=== PATIENT | male | born 1975 | race African-American/Black ===

== ENCOUNTER 2023-09-28 16:37 | Observation (INO) ==
--- NOTE | 2023-09-28 17:02 | DR.GENAD ---
HPI Time Seen Time Seen by Provider: 09/28/23 17:02 PCP Primary Care Physician: [email or web address] Complaint/Symptoms Chief Complaint Doctors Comments: 48 y/o male presents for evaluation. Patient having swelling of his legs, coughing and shortness of breath. Patient was diagnosed earlier this week with congestive heart failure, first time he had the diagnosis. Patient also told he had a touch of pneumonia. Has been taking Lasix, 40 mg, twice daily, was increased to 80 mg twice daily. Patient still having swelling of his ankles and legs. He is short of breath even at rest. He is worse with laying down. Patient sleeps on a couple of pillows. Denies any fever, chest pain, bowel or bladder issues. Gets an occasional twinge of epigastric discomfort with eating. Has had a productive cough, productive of white-yellow sputum. Chief Complaint:: patient c/o of increased sob since 5am this morning along with o2 sat dropping from 99-70's during triage patient o2 sat was 99 and slowly dropped down into the low 70's and slowly came back up to 99. states this has been going on since this am with o2 sat dropping.nando feet swelling. patient denies pain. COVID-19 Coronavirus risk:travel/contact w/high risk person: No Has patient experienced Coronavirus symptoms: No Nurses notes reviewed Nurses Notes Review: Yes Source History Provided: Patient Mode of Arrival Mode of Arrival: Ambulatory Timing Onset of Chief Complaint: 09/28/23 PMH PMH Past Medical History: Yes Past Medical History: CHF and Hypertension Past Surgical History: No Family History History of Family Medical Conditions: Yes Family Medical History: Diabetes Mellitus and Hypertension Social History Does patient currently use any type of tobacco product: No Have you used tobacco products in the last 12 months: No Type of Tobacco Use: None Does any household member use tobacco: No Alcohol Use: None Do you use any recreational Drugs:: No Lives With: Family Lives Where: Home Travel Risk Coronavirus risk:travel/contact w/high risk person: No Has patient experienced Coronavirus symptoms: No Infectious screening In the last 2 months have you had wt loss of >10#?: NO Have you had fever, night sweats or hemotysis?: No Have you traveled outside the country in the last 6 months?: No Isolation: Standard ROS Review of Systems Constitutional: No Symptoms Reported Eyes: No Symptoms Reported ENTM: No Symptoms Reported Respiratoy: Moist Cough and Short of Breath Cardiovascular: Edema Gastrointestinal/Abdominal: No Symptoms Reported Genitourinary: No Symptoms Reported Neurological: No Symptoms Reported Musculoskeletal: No Symptoms Reported Integumentary: No Symptoms Reported Hematologic/Lymphatic: No Symptoms Reported All Other Systems: Reviewed and Negative PE Vital Signs Vitals: Vital Signs Temperature 98.2 F Pulse Rate 77 Pulse Rate 86 Pulse Rate 76 Pulse Rate 81 Pulse Rate 82 Pulse Rate 76 Pulse Rate 78 Pulse Rate 76 Pulse Rate 82 Pulse Rate 80 Pulse Rate 83 Pulse Rate 87 Respiratory Rate 22 Blood Pressure 117/58 Blood Pressure 117/73 Blood Pressure 115/73 Blood Pressure 122/70 Blood Pressure 129/82 O2 Sat by Pulse Oximetry 100 O2 Sat by Pulse Oximetry 100 O2 Sat by Pulse Oximetry 100 O2 Sat by Pulse Oximetry 100 O2 Sat by Pulse Oximetry 99 O2 Sat by Pulse Oximetry 100 O2 Sat by Pulse Oximetry 100 O2 Sat by Pulse Oximetry 98 O2 Sat by Pulse Oximetry 100 O2 Sat by Pulse Oximetry 100 O2 Sat by Pulse Oximetry 100 O2 Sat by Pulse Oximetry 99 General General Appearance: Alert and In No Apparent Distress Eyes Eye exam: PERRL and EOMI ENT ENT Exam: Normal Exam and Mucous Membranes Moist Neck Neck Exam: Normal Inspection Respiratory Respiratory Exam: Other (Rales at the right base, decreased breath sounds at the base) Cardiovascular Cardiovascular Exam: Regular Rate, Normal Rhythm and Normal Heart Sounds Abdominal Exam Abdominal Exam: Normal Bowel Sounds and Soft; negative Tenderness Extremities Extremities Exam: Edema (3+, bilateral lower exts.) Neurologic Neurological Exam: Alert, Oriented X3 and CN II-XII Intact; negative Motor Sensory Deficit Skin Skin Exam: Warm and Dry COURSE Treatment Treatment: 48-year-old male presents with lower extremity edema, shortness of b reath. Diagnosed this week with CHF. Symptoms unrelieved with high dose of Lasix, 80 mgs BID. W/u initiated. Given IV lasix, 40 mgs. 1933 -patient was put out 1800 mL urine after the Lasix. Remained stable at rest, on O2. Chest x-ray shows cardiomegaly with CHF changes present. Troponin was normal at 21, lactic acid normal at 0.9. CBC and CMP overall unremarkable. Discussed with loyda HICKS, Dr Cotto, will admit for further IV diuresis. ROR Labs Reviewed Laboratory Results Reviewed?: Yes 09/28/23 17:05 09/28/23 17:05 Laboratory: WBC 5.8 X10^3/uL (3.6-10.0) 09/28/23 17:05 RBC 5.47 X10^6/uL (4.7-6.0) 09/28/23 17:05 Hgb 12.8 g/dL (13.5-18.0) L 09/28/23 17:05 Hct 40.7 % (42.0-54.0) L 09/28/23 17:05 MCV 74.5 fL (80.0-100.0) L 09/28/23 17:05 MCH 23.4 pg (27.0-34.0) L 09/28/23 17:05 MCHC 31.5 g/dL (33.0-35.0) L 09/28/23 17:05 RDW 18.3 % (11.6-16.5) H 09/28/23 17:05 Plt Count 175 X10^3/uL (150.0-450.0) 09/28/23 17:05 Plt Count Comment Adequate (ADEQUATE) 09/28/23 17:05 MPV 10.1 fL (7.4-11.0) 09/28/23 17:05 Neut % (Auto) 52.4 % (42.0-75.0) 09/28/23 17:05 Lymph % (Auto) 33.5 % (21.0-51.0) 09/28/23 17:05 [place] % (Auto) 11.1 % (0.0-13.0) 09/28/23 17:05 Eos % (Auto) 1.9 % (0.9-2.9) 09/28/23 17:05 Baso % (Auto) 1.1 % (0.2-1.0) H 09/28/23 17:05 Neut # (Auto) 3.0 x10^3/uL (2.2-4.8) 09/28/23 17:05 Lymph # (Auto) 1.9 X10^3/uL (1.3-2.9) 09/28/23 17:05 [place] # (Auto) 0.6 x10^3/uL (0.3-0.8) 09/28/23 17:05 Eos # (Auto) 0.1 x10^3/uL (0.0-0.2) 09/28/23 17:05 Baso # (Auto) 0.1 X10^3/uL (0.0-0.1) 09/28/23 17:05 Absolute Nucleated RBC 0.1 /100WBC 09/28/23 17:05 Plt Morphology Comment Normal (NORMAL) 09/28/23 17:05 RBC Morphology Abnormal (NORMAL) 09/28/23 17:05 Hypochromasia 1+ A 09/28/23 17:05 Anisocytosis Slight A 09/28/23 17:05 Microcytosis Slight A 09/28/23 17:05 Target Cells Present 09/28/23 17:05 Sodium 137 mmol/L (136-145) 09/28/23 17:05 Corrected Sodium 138 mmol/L (136-145) 09/28/23 17:05 Potassium 3.6 mmol/L (3.5-5.1) 09/28/23 17:05 Chloride 103 mmol/L (98-107) 09/28/23 17:05 Carbon Dioxide 30.2 mmol/L (21-32) 09/28/23 17:05 BUN 12 mg/dL (7-18) 09/28/23 17:05 Creatinine 1.47 mg/dL (0.70-1.30) H 09/28/23 17:05 Est GFR (MDRD) Af Amer > 60 (>60) 09/28/23 17:05 Est GFR (MDRD) Non-Af 54 (>60) L 09/28/23 17:05 Glucose 126 mg/dL (65-99) H 09/28/23 17:05 Lactic Acid 0.9 mmol/L (0.4-2.0) 09/28/23 17:29 Calcium 8.5 mg/dL (8.5-10.1) 09/28/23 17:05 Corrected Calcium 9.2 mg/dL (8.5-10.1) 09/28/23 17:05 Total Bilirubin 1.40 mg/dL (0.2-1.0) H 09/28/23 17:05 AST 16 Units/L (15-37) 09/28/23 17:05 ALT 40 Units/L (12-78) 09/28/23 17:05 Alkaline Phosphatase 47 Units/L (46-116) 09/28/23 17:05 Troponin I High Sens 21.0 ng/L (4.0-60.0) 09/28/23 17:05 B-Natriuretic Peptide 508 pg/mL (0-79) H 09/28/23 17:05 Total Protein 6.1 g/dL (6.4-8.2) L 09/28/23 17:05 Albumin 3.1 g/dL (3.4-5.0) L 09/28/23 17:05 Globulin 3.0 g/dL (2.5-4.5) 09/28/23 17:05 Albumin/Globulin Ratio 1.0 Ratio (1.1-2.1) L 09/28/23 17:05 Lipase 50 Units/L (16-77) 09/28/23 17:05 XRAY XRAY Interpreted by: Both X-ray Results: EXAM: PORTABLE CHEST X-RAY HISTORY: Dyspnea. TECHNIQUE: AP CXR dated September 28, 2023 at 6:01 PM. COMPARISON: CXR dated September 22, 2023. FINDINGS: There is evidence for cardiomegaly. The pulmonary vascularity and interstitial markings are diffusely prominent, consistent with CHF or volume overload in the appropriate clinical setting. There is no gross focal lung consolidation, pleural effusion, or pneumothorax seen. The visualized bony structures are within normal limits. IMPRESSION: 1. Findings consistent with CHF or volume overload in the appropriate clinical setting (significantly improved appearance of infiltrates). Clinical correlation is advised. THIS IS AN ELECTRONICALLY VERIFIED FINAL REPORT 09/28/2023 6:35 PM - Electronically signed by Bonnie Willson EKG Rate: 77 [place]: Normal Rhythm: NSR Hypertrophy: LAE ST: Normal Opioid Opioid Risk Tool Age (Anton box if 16-45): No History of Preadolescent Sexual Abuse: No Total: 0 Total Score Risk Category: Low Risk Copyright: Tor JACKSON predicting aberrant behaviors Discharge Plan Diagnosis Discharge Problem: CHF (congestive heart failure) Discharge Plan Patient Disposition: 09 ADMITTED INPATIENT Condition: Stable Prescriptions: No Action potassium chloride 10 mEq capsule, extended release 10 meq PO BID Qty: 60 2RF carvedilol 6.25 mg tablet 6.25 mg PO Q12H Qty: 60 3RF Rx Instructions: must administer with a meal/food cefdinir 300 mg capsule 300 mg PO BID Qty: 20 0RF benzonatate 100 mg capsule 100 mg PO BID PRNQty: 14 0RF furosemide 40 mg tablet 80 mg PO BID Health Concerns: Post Hospitalization: new medications and changes needed to prevent readmission or further decline. Pt educated and given instructions on all concerns. Plan of Treatment: Continue with present treatment and follow up plan. Pt is to keep follow up appointment as instructed and take medications as ordered. Orders to Discharge Patient Discharge Orders: Transfer (Routine); Ordered 09/28/23 Ordered By: Camilo June Follow ups/Referrals Follow ups/Referrals: Johnnie Cotto [Primary Care Provider] - 3 days
[2023-09-28] MEDS ORDERED: LASIX IVP ONE ×2 (17:15→17:20)
--- NOTE | 2023-09-28 17:15 | EKG ---
Test Reason : dyspnea Blood Pressure : */* mmHG Vent. Rate : 77 BPM Atrial Rate : 77 BPM P-R Int : 146 ms QRS Dur : 88 ms QT Int : 412 ms P-R-T Axes : 64 23 22 degrees QTc Int : 466 ms Normal sinus rhythm Possible Left atrial enlargement Nonspecific T wave abnormality Prolonged QT Abnormal ECG When compared with ECG of 22-SEP-2023 10:39, Borderline criteria for Inferior infarct are no longer present Confirmed by Lion Mcdermott MD ([id number]) on 09/29/2023 7:44:17 AM Referred By: Confirmed By: Lion Mcdermott MD
[2023-09-28 17:18] LABS: BASOPHILS # (AUTO) 0.1 X10^3/uL (0.0-0.1); BASOPHILS % (AUTO) 1.1 % (0.2-1.0); EOSINOPHILS # (AUTO) 0.1 x10^3/uL (0.0-0.2); EOSINOPHILS % (AUTO) 1.9 % (0.9-2.9); HEMATOCRIT 40.7 % (42.0-54.0); HEMOGLOBIN 12.8 g/dL (13.5-18.0); LYMPHOCYTES # (AUTO) 1.9 X10^3/uL (1.3-2.9); LYMPHOCYTES % (AUTO) 33.5 % (21.0-51.0); MEAN CORPUSCULAR HEMOGLOBIN 23.4 pg (27.0-34.0); MEAN CORPUSCULAR HGB CONC 31.5 g/dL (33.0-35.0); MEAN CORPUSCULAR VOLUME 74.5 fL (80.0-100.0); MEAN PLATELET VOLUME 10.1 fL (7.4-11.0); MONOCYTES # (AUTO) 0.6 x10^3/uL (0.3-0.8); MONOCYTES % (AUTO) 11.1 % (0.0-13.0); NEUTROPHILS % (AUTO) 52.4 % (42.0-75.0); PLATELET COUNT 175 X10^3/uL (150.0-450.0); RED BLOOD COUNT 5.47 X10^6/uL (4.7-6.0); RED CELL DISTRIBUTION WIDTH 18.3 % (11.6-16.5); WHITE BLOOD COUNT 5.8 X10^3/uL (3.6-10.0)
[2023-09-28 17:35] LABS: ALANINE AMINOTRANSFERASE 40 Units/L (12-78); ALBUMIN 3.1 g/dL (3.4-5.0); ALKALINE PHOSPHATASE 47 Units/L (46-116); ASPARTATE AMINO TRANSFERASE 16 Units/L (15-37); BLOOD UREA NITROGEN 12 mg/dL (7-18); CALCIUM 8.5 mg/dL (8.5-10.1); CARBON DIOXIDE 30.2 mmol/L (21-32); CHLORIDE 103 mmol/L (98-107); COR CA(FOR HYPOALB) 9.2 mg/dL (8.5-10.1); COR NA(FOR HYPERGLY) 138 mmol/L (136-145); CREATININE 1.47 mg/dL (0.70-1.30); GLUCOSE 126 mg/dL (65-99); LIPASE 50 Units/L (16-77); POTASSIUM 3.6 mmol/L (3.5-5.1); SODIUM 137 mmol/L (136-145); TOTAL PROTEIN 6.1 g/dL (6.4-8.2); eGFR NON BLACK RACES 54 (>60)
[2023-09-28 17:44] LABS: HYPOCHROMASIA 1+; PLATELET MORPHOLOGY COMMENT NORMAL (NORMAL)
[2023-09-28 17:45] LABS: ANISOCYTOSIS SLIGHT; MICROCYTOSIS SLIGHT
[2023-09-28 17:48] LABS: TARGET CELLS PRESENT
--- NOTE | 2023-09-28 18:39 | RAD ---
EXAM: PORTABLE CHEST X-RAYHISTORY: Dyspnea.TECHNIQUE: AP CXR dated September 28, 2023 at 6:01 PM.COMPARISON: CXR dated September 22, 2023.FINDINGS:There is evidence for cardiomegaly. The pulmonary vascularity and interstitial markings are diffusely prominent, consistent with CHF or volume overload in the appropriate clinical setting.There is no gross focal lung consolidation, pleural effusion, or pneumothorax seen. The visualized bony structures are within normal limits.IMPRESSION:1. Findings consistent with CHF or volume overload in the appropriate clinical setting (significantly improved appearance of infiltrates). Clinical correlation is advised.THIS IS AN ELECTRONICALLY VERIFIED FINAL REPORT09/28/2023 6:35 PM - Electronically signed by Bonnie Willson
[2023-09-28] MEDS ORDERED: CONSULT PHARMACY - POTASSIUM & MAGNESIUM XX SCH (20:29)
[2023-09-28] MEDS ORDERED: K-DUR TAB 20 MEQ PO ONE (21:00)
[2023-09-28 21:44] VITALS: BMI 42.7
[2023-09-28] MEDS: COREG TAB 6.25 MG PO SCH (22:00)
[2023-09-28] MEDS: MICRO K EXTEN CAP 10 MEQ PO SCH (22:00)
[2023-09-29 05:19] LABS: BASOPHILS # (AUTO) 0.1 X10^3/uL (0.0-0.1); BASOPHILS % (AUTO) 1.2 % (0.2-1.0); EOSINOPHILS # (AUTO) 0.2 x10^3/uL (0.0-0.2); EOSINOPHILS % (AUTO) 2.7 % (0.9-2.9); HEMATOCRIT 39.3 % (42.0-54.0); HEMOGLOBIN 12.3 g/dL (13.5-18.0); LYMPHOCYTES # (AUTO) 1.5 X10^3/uL (1.3-2.9); MEAN CORPUSCULAR HEMOGLOBIN 23.1 pg (27.0-34.0); MEAN CORPUSCULAR HGB CONC 31.3 g/dL (33.0-35.0); MEAN CORPUSCULAR VOLUME 73.9 fL (80.0-100.0); MEAN PLATELET VOLUME 10.2 fL (7.4-11.0); MONOCYTES # (AUTO) 0.8 x10^3/uL (0.3-0.8); MONOCYTES % (AUTO) 14.1 % (0.0-13.0); NEUTROPHILS # (AUTO) 3.2 x10^3/uL (2.2-4.8); PLATELET COUNT 173 X10^3/uL (150.0-450.0); RED BLOOD COUNT 5.31 X10^6/uL (4.7-6.0); RED CELL DISTRIBUTION WIDTH 18.9 % (11.6-16.5); WHITE BLOOD COUNT 5.7 X10^3/uL (3.6-10.0)
[2023-09-29 05:45] LABS: COR CA(FOR HYPOALB) 9.3 mg/dL (8.5-10.1); eGFR NON BLACK RACES 54 (>60)
[2023-09-29 06:07] LABS: CHLORIDE 104 mmol/L (98-107); POTASSIUM 3.8 mmol/L (3.5-5.1); SODIUM 143 mmol/L (136-145)
[2023-09-29 06:16] LABS: ANISOCYTOSIS SLIGHT; HYPOCHROMASIA 1+; MICROCYTOSIS SLIGHT; PLATELET MORPHOLOGY COMMENT NORMAL (NORMAL); TARGET CELLS PRESENT
[2023-09-29 06:26] LABS: ALANINE AMINOTRANSFERASE 39 Units/L (12-78); ALKALINE PHOSPHATASE 48 Units/L (46-116); ASPARTATE AMINO TRANSFERASE 13 Units/L (15-37); BLOOD UREA NITROGEN 14 mg/dL (7-18); CALCIUM 8.5 mg/dL (8.5-10.1); CARBON DIOXIDE 30.8 mmol/L (21-32); CREATININE 1.48 mg/dL (0.70-1.30); GLUCOSE 105 mg/dL (65-99); TOTAL PROTEIN 5.8 g/dL (6.4-8.2)
[2023-09-29] MEDS: COREG TAB 6.25 MG PO SCH ×2 (08:51→20:42)
[2023-09-29] MEDS: MICRO K EXTEN CAP 10 MEQ PO SCH ×2 (08:52→20:42)
[2023-09-29] MEDS ORDERED: LASIX IVP SCH (09:00)
[2023-09-29] MEDS ORDERED: DIOVAN TAB 80 MG PO SCH (11:00)
--- NOTE | 2023-09-29 12:31 | DR.CONSULT ---
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/admitted for chf Past Medical History Past Medical History: CHF and Hypertension Family History Family Medical History: Diabetes Mellitus, [place] and Hypertension Social History Does patient currently use any type of tobacco product: No Have you used tobacco products in the last 12 months: No Type of Tobacco Use: None Does any household member use tobacco: No Alcohol Use: None Drug Use: None Medications Home Medications: No Known Drug Allergies Allergy (Verified 09/22/23 10:42) CONTINUE taking the following medications furosemide 40 mg tablet 80 mg PO BID Congestive heart failure/lower extremity edema 09/28/23 [History] Physical Exam Vital Signs: Vital Signs Temperature 97.5 F Pulse Rate [Left Brachial] 72 Respiratory Rate 20 Blood Pressure [Left Arm] 122/88 O2 Sat by Pulse Oximetry 100 alert ox3 nad elevated JVD/ no bruits 2/6 hsm apex 2 plus edema lings: few crackles labs: hct 39 mcv 73, cr 1.48, bnp 500 albumin 3.0 trop x2 neagtive cXR: CHF ekg: nsr lae nst prol qt echo: ef 30-35% mod mr, big LV Plan (1) CHF (congestive heart failure): Status: Acute (2) Hypertension: Status: None (3) Edema: Status: Acute (4) Cardiomyopathy: Status: Acute Plan: coreg/entresto/diuresis. chech tsh/lipids- ischemic eval in near future
[2023-09-29 13:26] LABS: CHOL/HDL RATIO 4.1 (0.0-5.0); TSH (3RD GENERATION) 2.596 uIU/mL (0.358-3.74)
--- NOTE | 2023-09-29 17:05 | DR.H&P ---
H&P History & Physical for Day of: H&P Date: 09/29/23 Chief Complaint Chief Complaint: Shortness of breath and increased generalized swelling Allergies Allergies Allergy/AdvReac Type Severity Reaction Status Date / Time No Known Drug Allergies Allergy Verified 09/22/23 10:42 History of Present Illness History of Present Illness: This is a pleasant 48-year-old black male well-known to me. I saw him last week at my office after he had just been seen in the [facility] emergency department and diagnosed with congestive heart failure. He was placed on Lasix 40 mg daily. He was continuing to have generalized edema so I increased his Lasix to 40 mg p.o. twice daily. After 1 day of that he reports he was not urinating so I increased his Lasix to 80 mg p.o. twice daily. Through the weekend he apparently continued to have decreased urine output with increasing shortness of breath even at rest. He had 2-3 pillow orthopnea and reports that increasing Lasix to 80 mg twice daily did not relieve his generalized edema. He proceeded to come to the [facility] emergency department yesterday and was given IV Lasix and diuresed 1800 L. I see this morning his BNP went from lower 500s to the upper 500s despite the diuresis. I put in a consult with cardiology and we will follow-up with that later today. I also ordered echocardiogram and we will follow-up with the results later today as well. Patient denies chest pain substernal pressure since admission. He had a troponin done in the emergency department and was normal. Past Medical History Past Medical History: CHF and Hypertension Family History Family Medical History: Diabetes Mellitus, [place] and Hypertension Social History Does patient currently use any type of tobacco product: No Have you used tobacco products in the last 12 months: No Type of Tobacco Use: None Does any household member use tobacco: No Alcohol Use: None Drug Use: None Medications Home Medications: Home Medications Medication Instructions Recorded Confirmed Type furosemide 40 mg tablet 80 mg PO BID Congestive heart 09/28/23 09/28/23 History failure/lower extremity edema Labs 09/29/23 04:50 09/29/23 04:50 Labs: Laboratory WBC 5.7 X10^3/uL (3.6-10.0) 09/29/23 04:50 RBC 5.31 X10^6/uL (4.7-6.0) 09/29/23 04:50 Hgb 12.3 g/dL (13.5-18.0) L 09/29/23 04:50 Hct 39.3 % (42.0-54.0) L 09/29/23 04:50 MCV 73.9 fL (80.0-100.0) L 09/29/23 04:50 MCH 23.1 pg (27.0-34.0) L 09/29/23 04:50 MCHC 31.3 g/dL (33.0-35.0) L 09/29/23 04:50 RDW 18.9 % (11.6-16.5) H 09/29/23 04:50 Plt Count 173 X10^3/uL (150.0-450.0) 09/29/23 04:50 Plt Count Comment Adequate (ADEQUATE) 09/29/23 04:50 MPV 10.2 fL (7.4-11.0) 09/29/23 04:50 Neut % (Auto) 56.0 % (42.0-75.0) 09/29/23 04:50 Lymph % (Auto) 26.0 % (21.0-51.0) 09/29/23 04:50 [place] % (Auto) 14.1 % (0.0-13.0) H 09/29/23 04:50 Eos % (Auto) 2.7 % (0.9-2.9) 09/29/23 04:50 Baso % (Auto) 1.2 % (0.2-1.0) H 09/29/23 04:50 Neut # (Auto) 3.2 x10^3/uL (2.2-4.8) 09/29/23 04:50 Lymph # (Auto) 1.5 X10^3/uL (1.3-2.9) 09/29/23 04:50 [place] # (Auto) 0.8 x10^3/uL (0.3-0.8) 09/29/23 04:50 Eos # (Auto) 0.2 x10^3/uL (0.0-0.2) 09/29/23 04:50 Baso # (Auto) 0.1 X10^3/uL (0.0-0.1) 09/29/23 04:50 Absolute Nucleated RBC 0.1 /100WBC 09/29/23 04:50 Plt Morphology Comment Normal (NORMAL) 09/29/23 04:50 RBC Morphology Abnormal (NORMAL) 09/29/23 04:50 Hypochromasia 1+ A 09/29/23 04:50 Anisocytosis Slight A 09/29/23 04:50 Microcytosis Slight A 09/29/23 04:50 Target Cells Present 09/29/23 04:50 Acanthocytes (Spur) Present 09/29/23 04:50 Sodium 143 mmol/L (136-145) 09/29/23 04:50 Corrected Sodium TNP 09/29/23 04:50 Potassium 3.8 mmol/L (3.5-5.1) 09/29/23 04:50 Chloride 104 mmol/L (98-107) 09/29/23 04:50 Carbon Dioxide 30.8 mmol/L (21-32) 09/29/23 04:50 BUN 14 mg/dL (7-18) 09/29/23 04:50 Creatinine 1.48 mg/dL (0.70-1.30) H 09/29/23 04:50 Est GFR (MDRD) Af Amer > 60 (>60) 09/29/23 04:50 Est GFR (MDRD) Non-Af 54 (>60) L 09/29/23 04:50 Glucose 105 mg/dL (65-99) H 09/29/23 04:50 Lactic Acid 0.9 mmol/L (0.4-2.0) 09/28/23 17:29 Calcium 8.5 mg/dL (8.5-10.1) 09/29/23 04:50 Corrected Calcium 9.3 mg/dL (8.5-10.1) 09/29/23 04:50 Total Bilirubin 1.00 mg/dL (0.2-1.0) 09/29/23 04:50 AST 13 Units/L (15-37) L 09/29/23 04:50 ALT 39 Units/L (12-78) 09/29/23 04:50 Alkaline Phosphatase 48 Units/L (46-116) 09/29/23 04:50 Troponin I High Sens 21.0 ng/L (4.0-60.0) 09/28/23 17:05 B-Natriuretic Peptide 557 pg/mL (0-79) H 09/29/23 04:50 Total Protein 5.8 g/dL (6.4-8.2) L 09/29/23 04:50 Albumin 3.0 g/dL (3.4-5.0) L 09/29/23 04:50 Globulin 2.8 g/dL (2.5-4.5) 09/29/23 04:50 Albumin/Globulin Ratio 1.1 Ratio (1.1-2.1) 09/29/23 04:50 Triglycerides 60 mg/dL (0-150) 09/29/23 04:50 Cholesterol 160 mg/dL (0-200) 09/29/23 04:50 LDL Cholesterol, Calc 109 mg/dL (0-100) H 09/29/23 04:50 HDL Cholesterol 39 mg/dL (40-60) L 09/29/23 04:50 Cholesterol/HDL Ratio 4.1 (0.0-5.0) 09/29/23 04:50 Lipase 50 Units/L (16-77) 09/28/23 17:05 TSH 3rd Generation 2.596 uIU/mL (0.358-3.74) 09/29/23 04:50 Review of Systems Constitutional: Weakness and Malaise Eyes: No Symptoms Reported ENT: No Symptoms Reported Respiratory: Cough, Shortness of Breath and SOB with Excertion; denies Hemoptysis, Pleuritic Pain, Sputum or Wheezing Cardiovascular: Orthopnea and Edema; denies Chest Pain, Palpitations or Light Headedness Gastrointestinal: No Symptoms Reported Genitourinary: No Symptoms Reported Musculoskeletal: No Symptoms Reported Skin: No Symptoms Reported Neurological: No Symptoms Reported Oriented: Normal, Time, Person and Place Eyes: Normal Ear: Normal Nose: Normal Throat: Normal Respiratory: Clear Throughout Cardiovascular: Normal Auscultation: Bowel Sounds: Normal Palpation: Normal Tenderness: Normal Skin: Normal Musculoskeletal: Normal Psychiatric: Normal Mood Description: Calm Affect: Normal Speech Pattern: Clear and Appropriate Assessment/Plan (1) CHF (congestive heart failure): Status: Acute Plan: Continue IV diuresis with Lasix and p.o. carvedilol. I will order echocardiogram and put in a consult with cardiology. Repeat routine labs and BNP as well as chest x-ray tomorrow morning. (2) Hypertension: Status: None Plan: Continue Coreg at this time. Monitor daily blood pressures. (3) Edema: Status: Acute Plan: IV diuresis with IV Lasix. (4) Cardiomyopathy: Status: Acute Plan: Cardiology consultation. Review H&P Reviewed: Yes Patient was examined?: Yes
[2023-09-29] MEDS: LASIX IVP SCH (18:36)
[2023-09-30 06:32] LABS: BASOPHILS % (AUTO) 0.7 % (0.2-1.0); EOSINOPHILS # (AUTO) 0.1 x10^3/uL (0.0-0.2); EOSINOPHILS % (AUTO) 2.2 % (0.9-2.9); HEMATOCRIT 38.4 % (42.0-54.0); HEMOGLOBIN 12.2 g/dL (13.5-18.0); LYMPHOCYTES # (AUTO) 1.8 X10^3/uL (1.3-2.9); LYMPHOCYTES % (AUTO) 31.3 % (21.0-51.0); MEAN CORPUSCULAR HEMOGLOBIN 23.5 pg (27.0-34.0); MEAN CORPUSCULAR HGB CONC 31.6 g/dL (33.0-35.0); MEAN CORPUSCULAR VOLUME 74.2 fL (80.0-100.0); MEAN PLATELET VOLUME 10.6 fL (7.4-11.0); MONOCYTES # (AUTO) 0.7 x10^3/uL (0.3-0.8); MONOCYTES % (AUTO) 11.5 % (0.0-13.0); NEUTROPHILS # (AUTO) 3.1 x10^3/uL (2.2-4.8); NEUTROPHILS % (AUTO) 54.3 % (42.0-75.0); PLATELET COUNT 170 X10^3/uL (150.0-450.0); RED BLOOD COUNT 5.18 X10^6/uL (4.7-6.0); RED CELL DISTRIBUTION WIDTH 18.6 % (11.6-16.5); WHITE BLOOD COUNT 5.7 X10^3/uL (3.6-10.0)
[2023-09-30 06:54] LABS: ALANINE AMINOTRANSFERASE 41 Units/L (12-78); ALKALINE PHOSPHATASE 50 Units/L (46-116); ASPARTATE AMINO TRANSFERASE 14 Units/L (15-37); BLOOD UREA NITROGEN 15 mg/dL (7-18); CALCIUM 8.4 mg/dL (8.5-10.1); CARBON DIOXIDE 29.6 mmol/L (21-32); CHLORIDE 105 mmol/L (98-107); COR CA(FOR HYPOALB) 9.2 mg/dL (8.5-10.1); COR NA(FOR HYPERGLY) 142 mmol/L (136-145); CREATININE 1.35 mg/dL (0.70-1.30); GLUCOSE 126 mg/dL (65-99); POTASSIUM 3.6 mmol/L (3.5-5.1); SODIUM 141 mmol/L (136-145); TOTAL PROTEIN 5.9 g/dL (6.4-8.2); eGFR NON BLACK RACES 60 (>60)
--- NOTE | 2023-09-30 07:21 | RAD ---
EXAM: CHEST, PA/LAT ADULT HISTORY: CHF EXACERBATION/PULMONARY EDEMA; CHF HTN COMPARISON: Prior study or studies were utilized for comparison during interpretation with the most relevant antonia ed 09/28/2023 TECHNIQUE: CHEST, PA/LAT ADULT FINDINGS: Chest: Lines and tubes: None Mediastinum: Cardiomegaly. Pulmonary vessels: Pulmonary vasculature is prominent. Lung chávez: No suspicious airspace opacity. Pleura: No effusion. No pneumothorax. Bones and soft tissues: No acute osseous or soft tissue abnormality. IMPRESSION: 1. Findings suggest heart failure exacerbation THIS IS AN ELECTRONICALLY VERIFIED FINAL REPORT 09/30/2023 7:18 AM - Electronically signed by Adrian Lopez MD
[2023-09-30 07:31] LABS: ANISOCYTOSIS SLIGHT; HYPOCHROMASIA 1+; MICROCYTOSIS SLIGHT; OVALOCYTES SLIGHT; PLATELET MORPHOLOGY COMMENT NORMAL (NORMAL); TARGET CELLS SLIGHT
--- NOTE | 2023-09-30 09:11 | NOTE.SOAP ---
Soap Note Note for Day of Date of Exam: 09/30/23 Subjective Data Subjective Data: less sob/less edema- Objective Data Objective Data: bp 120s p 80s lungs clear edema improved echo ef 30-35%, mod mr ldl 109 tsh normal Assessment Assessment: cardiomyopahty/chf Plan Plan: entresto started today- coreg started yesterday- good diureisis- watch for low bp with entresto- near future: CCTA if get hr down to r/o cad vs cath vs nuc imaging
[2023-09-30] MEDS: ENTRESTO 24/26 MG TABLET PO SCH ×2 (09:32→20:23)
[2023-09-30] MEDS: COREG TAB 6.25 MG PO SCH ×2 (09:32→20:23)
[2023-09-30] MEDS: MICRO K EXTEN CAP 10 MEQ PO SCH ×2 (09:33→20:23)
[2023-09-30] MEDS: LASIX IVP SCH ×2 (09:33→18:25)
[2023-09-30] MEDS: LOVENOX INJ 40 MG SYR SC SCH (12:10)
[2023-09-30 23:14] VITALS: RESP 20
--- NOTE | 2023-10-01 07:54 | PCM.PROG ---
Progress Note Progress Note for Day of Date of Exam: 09/30/23 Subjective Subjective: The patient is feeling better. He is diuresing well. He has been started on Entresto this morning. We will follow his blood pressures today and adjust his Coreg if needed by tomorrow. His echocardiogram shows he has a EF of 30 to 35%. Plan on discharge home tomorrow if the patient continues to improve. Past Medical Family Social History Allergies: Allergies No Known Drug Allergies Allergy (Verified 09/22/23 10:42) Review of Systems ROS: No change since H&P Vital Signs and I&O's Vital Signs: Vital Signs Temperature 98.6 F Pulse Rate [Left Brachial] 73 Respiratory Rate 20 Blood Pressure [Left Arm] 104/55 O2 Sat by Pulse Oximetry 98 Intake and Output: Intake & Output 09/28/23 09/29/23 09/30/23 10/01/23 11:59 11:59 11:59 11:59 Intake Total 840 / 840 1520 / 1520 2030 / 2030 Output Total 1999 / 1999 1750 / 1750 1400 / 1400 Balance -1160 / -1160 -230 / -230 630 / 630 Physical Exam Oriented: Normal, Time, Person and Place Eyes: Normal Ear: Normal Nose: Normal Throat: Normal Respiratory: Normal Cardiovascular: Normal Auscultation: Bowel Sounds: Normal Tenderness: Normal Skin: Normal Musculoskeletal: Normal Psychiatric: Normal Mood Description: Calm Affect: Normal Speech Pattern: Clear and Appropriate Laboratory and Diagnostics 09/30/23 05:39 09/30/23 05:39 Labs: 09/28/23 17:29 Blood Blood Culture - Preliminary 09/28/23 17:20 Blood Blood Culture - Preliminary Laboratory WBC 5.7 X10^3/uL (3.6-10.0) 09/30/23 05:39 RBC 5.18 X10^6/uL (4.7-6.0) 09/30/23 05:39 Hgb 12.2 g/dL (13.5-18.0) L 09/30/23 05:39 Hct 38.4 % (42.0-54.0) L 09/30/23 05:39 MCV 74.2 fL (80.0-100.0) L 09/30/23 05:39 MCH 23.5 pg (27.0-34.0) L 09/30/23 05:39 MCHC 31.6 g/dL (33.0-35.0) L 09/30/23 05:39 RDW 18.6 % (11.6-16.5) H 09/30/23 05:39 Plt Count 170 X10^3/uL (150.0-450.0) 09/30/23 05:39 Plt Count Comment Adequate (ADEQUATE) 09/30/23 05:39 MPV 10.6 fL (7.4-11.0) 09/30/23 05:39 Neut % (Auto) 54.3 % (42.0-75.0) 09/30/23 05:39 Lymph % (Auto) 31.3 % (21.0-51.0) 09/30/23 05:39 [place] % (Auto) 11.5 % (0.0-13.0) 09/30/23 05:39 Eos % (Auto) 2.2 % (0.9-2.9) 09/30/23 05:39 Baso % (Auto) 0.7 % (0.2-1.0) 09/30/23 05:39 Neut # (Auto) 3.1 x10^3/uL (2.2-4.8) 09/30/23 05:39 Lymph # (Auto) 1.8 X10^3/uL (1.3-2.9) 09/30/23 05:39 [place] # (Auto) 0.7 x10^3/uL (0.3-0.8) 09/30/23 05:39 Eos # (Auto) 0.1 x10^3/uL (0.0-0.2) 09/30/23 05:39 Baso # (Auto) 0.0 X10^3/uL (0.0-0.1) 09/30/23 05:39 Absolute Nucleated RBC 0.1 /100WBC 09/30/23 05:39 Plt Morphology Comment Normal (NORMAL) 09/30/23 05:39 RBC Morphology Abnormal (NORMAL) 09/30/23 05:39 Hypochromasia 1+ A 09/30/23 05:39 Anisocytosis Slight A 09/30/23 05:39 Microcytosis Slight A 09/30/23 05:39 Target Cells Slight A 09/30/23 05:39 Ovalocytes Slight A 09/30/23 05:39 Acanthocytes (Spur) Present 09/29/23 04:50 Sodium 141 mmol/L (136-145) 09/30/23 05:39 Corrected Sodium 142 mmol/L (136-145) 09/30/23 05:39 Potassium 3.6 mmol/L (3.5-5.1) 09/30/23 05:39 Chloride 105 mmol/L (98-107) 09/30/23 05:39 Carbon Dioxide 29.6 mmol/L (21-32) 09/30/23 05:39 BUN 15 mg/dL (7-18) 09/30/23 05:39 Creatinine 1.35 mg/dL (0.70-1.30) H 09/30/23 05:39 Est GFR (MDRD) Af Amer > 60 (>60) 09/30/23 05:39 Est GFR (MDRD) Non-Af 60 (>60) 09/30/23 05:39 Glucose 126 mg/dL (65-99) H 09/30/23 05:39 Lactic Acid 0.9 mmol/L (0.4-2.0) 09/28/23 17:29 Calcium 8.4 mg/dL (8.5-10.1) L 09/30/23 05:39 Corrected Calcium 9.2 mg/dL (8.5-10.1) 09/30/23 05:39 Magnesium 2.0 mg/dL (2.0-2.9) 09/30/23 05:39 Total Bilirubin 0.90 mg/dL (0.2-1.0) 09/30/23 05:39 AST 14 Units/L (15-37) L 09/30/23 05:39 ALT 41 Units/L (12-78) 09/30/23 05:39 Alkaline Phosphatase 50 Units/L (46-116) 09/30/23 05:39 Troponin I High Sens 21.0 ng/L (4.0-60.0) 09/28/23 17:05 B-Natriuretic Peptide 312 pg/mL (0-79) H 09/30/23 05:39 Total Protein 5.9 g/dL (6.4-8.2) L 09/30/23 05:39 Albumin 3.0 g/dL (3.4-5.0) L 09/30/23 05:39 Globulin 2.9 g/dL (2.5-4.5) 09/30/23 05:39 Albumin/Globulin Ratio 1.0 Ratio (1.1-2.1) L 09/30/23 05:39 Triglycerides 60 mg/dL (0-150) 09/29/23 04:50 Cholesterol 160 mg/dL (0-200) 09/29/23 04:50 LDL Cholesterol, Calc 109 mg/dL (0-100) H 09/29/23 04:50 HDL Cholesterol 39 mg/dL (40-60) L 09/29/23 04:50 Cholesterol/HDL Ratio 4.1 (0.0-5.0) 09/29/23 04:50 Lipase 50 Units/L (16-77) 09/28/23 17:05 TSH 3rd Generation 2.596 uIU/mL (0.358-3.74) 09/29/23 04:50 Plan (1) CHF (congestive heart failure): Status: Acute Plan: Entresto started. Echocardiogram showed 30 to 35% EF. Cardiology following. (2) Hypertension: Status: None Plan: Continue Coreg at this time. Monitor daily blood pressures. (3) Edema: Status: Acute Plan: IV diuresis with IV Lasix. (4) Cardiomyopathy: Status: Acute Plan: Cardiology consultation.
[2023-10-01 09:07] LABS: BASOPHILS % (AUTO) 0.8 % (0.2-1.0); EOSINOPHILS # (AUTO) 0.1 x10^3/uL (0.0-0.2); EOSINOPHILS % (AUTO) 2.5 % (0.9-2.9); HEMATOCRIT 43.9 % (42.0-54.0); HEMOGLOBIN 13.9 g/dL (13.5-18.0); LYMPHOCYTES # (AUTO) 1.9 X10^3/uL (1.3-2.9); LYMPHOCYTES % (AUTO) 33.9 % (21.0-51.0); MEAN CORPUSCULAR HEMOGLOBIN 23.6 pg (27.0-34.0); MEAN CORPUSCULAR HGB CONC 31.6 g/dL (33.0-35.0); MEAN CORPUSCULAR VOLUME 74.8 fL (80.0-100.0); MEAN PLATELET VOLUME 9.9 fL (7.4-11.0); MONOCYTES # (AUTO) 0.7 x10^3/uL (0.3-0.8); MONOCYTES % (AUTO) 12.9 % (0.0-13.0); NEUTROPHILS # (AUTO) 2.7 x10^3/uL (2.2-4.8); NEUTROPHILS % (AUTO) 49.9 % (42.0-75.0); PLATELET COUNT 162 X10^3/uL (150.0-450.0); RED BLOOD COUNT 5.87 X10^6/uL (4.7-6.0); RED CELL DISTRIBUTION WIDTH 18.5 % (11.6-16.5); WHITE BLOOD COUNT 5.5 X10^3/uL (3.6-10.0)
[2023-10-01 09:29] LABS: ALANINE AMINOTRANSFERASE 55 Units/L (12-78); ALBUMIN 3.4 g/dL (3.4-5.0); ALKALINE PHOSPHATASE 66 Units/L (46-116); ASPARTATE AMINO TRANSFERASE 20 Units/L (15-37); BLOOD UREA NITROGEN 14 mg/dL (7-18); CALCIUM 8.7 mg/dL (8.5-10.1); CARBON DIOXIDE 31.1 mmol/L (21-32); CHLORIDE 103 mmol/L (98-107); COR NA(FOR HYPERGLY) 139 mmol/L (136-145); CREATININE 1.35 mg/dL (0.70-1.30); GLUCOSE 128 mg/dL (65-99); POTASSIUM 3.8 mmol/L (3.5-5.1); SODIUM 138 mmol/L (136-145); TOTAL PROTEIN 6.8 g/dL (6.4-8.2); eGFR NON BLACK RACES 60 (>60)
[2023-10-01 09:31] LABS: ANISOCYTOSIS SLIGHT; MICROCYTOSIS SLIGHT; PLATELET MORPHOLOGY COMMENT NORMAL (NORMAL); TARGET CELLS SLIGHT
[2023-10-01] MEDS: LASIX IVP SCH (09:57)
[2023-10-01] MEDS: MICRO K EXTEN CAP 10 MEQ PO SCH (09:57)
[2023-10-01] MEDS: LOVENOX INJ 40 MG SYR SC SCH (09:57)
[2023-10-01] MEDS: ENTRESTO 24/26 MG TABLET PO SCH (09:57)
[2023-10-01] MEDS: COREG TAB 6.25 MG PO SCH (09:57)
[2023-10-01 11:46] VITALS: BP 122/75; PULSE 70; TEMP 98.8; O2SAT 100
== END 2023-10-01 14:10 | disposition home or self-care (01) ==
LOC: ER 16:37 → MED/SURG 16:37
PROVIDERS: ADMIT Family Medicine; ATTEND Family Medicine
DX: R06.02 Shortness of breath; I42.9 Cardiomyopathy, unspecified; I50.9 Heart failure, unspecified; I11.0 Hypertensive heart disease with heart failure; R60.0 Localized edema

== ENCOUNTER 2025-07-28 14:20 | Observation (INO) ==
[2025-07-28] MEDS: ZOFRAN INJ 4 MG VIAL IVP ONE (14:32)
--- NOTE | 2025-07-28 14:39 | EKG ---
Test Reason : Syncope Episode Blood Pressure : */* mmHG Vent. Rate : 67 BPM Atrial Rate : 67 BPM P-R Int : 152 ms QRS Dur : 96 ms QT Int : 494 ms P-R-T Axes : 66 37 0 degrees QTc Int : 521 ms Normal sinus rhythm Cannot rule out Inferior infarct , age undetermined Prolonged QT Abnormal ECG When compared with ECG of 28-SEP-2023 17:13, T wave inversion now evident in Inferior leads Nonspecific T wave abnormality, improved in Lateral leads Confirmed by Lion Mcdermott MD ([id number]) on 07/31/2025 8:04:40 AM Referred By: Confirmed By: Lion Mcdermott MD
--- NOTE | 2025-07-28 15:00 | RAD ---
EXAM: CHEST, 1 VIEW HISTORY: SYNCOPE; COMPARISON: September 30, 2023 TECHNIQUE: AP upright view of the chest FINDINGS: Heart size is normal for technique, and mediastinal contours are normal. Lungs are hypoinflated but otherwise clear as are the pleural spaces. No free air or pneumothorax. No acute bony abnormality. Multilevel bridging osteophytes of the spine are typical of diffuse idiopathic skeletal hyperostosis. IMPRESSION: No acute radiographic abnormalities of the chest THIS IS AN ELECTRONICALLY VERIFIED FINAL REPORT 07/28/2025 2:56 PM - Electronically signed by Marc Sinha MD
--- NOTE | 2025-07-28 15:05 | DR.DIZZY ---
HPI Time seen Time Seen by Provider: 07/28/25 14:28 PCP Primary Care Physician: Dr. Mac Wells Complaint Chief Complaint Doctor Comments: Patient with 3 weeks of intermittent lower abdominal pain, he has been having nausea and vomiting over the last few days. Patient recently diagnosed with diabetes and started with insulin by his PCP. Patient had some dizziness today and had presyncopal episode but his friend was able to catch him before he hit the ground. Had no injuries. Glucose was over 300 per EMS. Chief Complaint:: Pt reports three week history of intermittent lower abdominal pain that occassionally radiates up around the umbilical area. Pain is described as cramping in nature. Pt has also had nausea and vomiting. Today pt reports walking to his truck and having a sudden onset of dizziness and passed out. His friend caught his before he hit the ground. Denies any injury from this episode. COVID-19 Coronavirus risk:travel/contact w/high risk person: No Has patient experienced Coronavirus symptoms: No Source History Provided: Patient Mode of Arrival Mode of Arrival: EMS Timing Onset of Chief Complaint: 07/14/25 Context Stroke Symptoms: Dizziness; denies Ataxia, Aphasia, Acute confusion, Weakness of limb, Numbness of limbs or Slurring PMH PMH Past Medical History: Yes Past Medical History: CHF, Diabetes and Hypertension Past Surgical History: No Family History History of Family Medical Conditions: Yes Family Medical History: Diabetes Mellitus, [place], Coronary Artery Disease and Hypertension Social History Does patient currently use any type of tobacco product: No Have you used tobacco products in the last 12 months: No Type of Tobacco Use: None Does any household member use tobacco: No Alcohol Use: None Do you use any recreational Drugs:: No Lives With: Family Lives Where: Home Travel Risk Coronavirus risk:travel/contact w/high risk person: No Has patient experienced Coronavirus symptoms: No Infectious screening In the last 2 months have you had wt loss of >10#?: NO Have you had fever, night sweats or hemotysis?: No Have you traveled outside the country in the last 6 months?: No Isolation: Standard ROS Review of Systems Constitutional: No Symptoms Reported Eyes: No Symptoms Reported ENTM: No Symptoms Reported Respiratoy: No Symptoms Reported Cardiovascular: No Symptoms Reported Gastrointestinal/Abdominal: See HPI Genitourinary: No Symptoms Reported Neurological: See HPI Musculoskeletal: No Symptoms Reported Integumentary: No Symptoms Reported Hematologic/Lymphatic: No Symptoms Reported Endocrine: No Symptoms Reported Psychiatric: No Symptoms Reported All Other Systems: Reviewed and Negative PE Vital Signs Vitals: Vital Signs Temperature 98.1 F Pulse Rate 70 Pulse Rate 69 Pulse Rate 67 Pulse Rate 68 Pulse Rate 70 Pulse Rate 68 Pulse Rate 73 Respiratory Rate 15 Respiratory Rate 15 Respiratory Rate 17 Respiratory Rate 20 Respiratory Rate 20 Blood Pressure 101/60 Blood Pressure 104/59 O2 Sat by Pulse Oximetry 98 O2 Sat by Pulse Oximetry 98 O2 Sat by Pulse Oximetry 95 O2 Sat by Pulse Oximetry 96 O2 Sat by Pulse Oximetry 95 O2 Sat by Pulse Oximetry 98 O2 Sat by Pulse Oximetry 97 General Limitations: No Limitations General Appearance: Alert and In No Apparent Distress Head Head Exam: Normal Inspection Eyes Eye exam: Normal Appearance ENT ENT Exam: Normal Exam, Normal Oropharynx and Normal External Ear Exam Neck Neck Exam: Normal Inspection and Full ROM Chest Chest Inspection: Normal Inspection Respiratory Respiratory Exam: Normal Lung Sounds Bilat Cardiovascular Cardiovascular Exam: Regular Rate and Normal Rhythm Abdominal Exam Abdominal Exam: Normal Inspection, Normal Bowel Sounds and Soft; negative Distention, Tenderness, Guarding, Rebound, Rigidity, Organomegaly or Ascites Rectal Rectal Exam: Deferred Extremeties Extremities Exam: Normal Inspection and Full ROM Back Back Exam: Normal Inspection and Full ROM Neurologic Neurological Exam: Alert, Oriented X3, CN II-XII Intact and Reflexes Normal; negative Motor Sensory Deficit Psychiatric Psychiatric Exam: Normal Affect and Normal Mood Skin Skin Exam: Warm, Dry, Intact and Normal Color COURSE Treatment Treatment: Patient in DKA. His potassium is very low so we cannot start insulin until that is corrected. Potassium given in ER and fluids started. Discussed results of workup with patient and family. Patient agreeable to admission. Consultation Consultation Comments: Discussed case with Dr. Velazquez and he is agreeable to admission. Orders given to call Dr. Velazquez with next potassium levels so he can address whether it is time to start insulin. Critical Care Notes Total Time (mins): 38 Critical Diagnosis: DKA, hypokalemia Critical Interventions: Time spent examining patient, ordering and reviewing workup. Time spent coordinating admission with hospitalist. Patient given fluids and potassium replacement. Will await correction of potassium to start insulin drip. ROR Labs Reviewed Laboratory Results Reviewed?: Yes 07/28/25 15:07 07/28/25 15:07 Laboratory: WBC 4.8 X10^3/uL (3.6-10.0) 07/28/25 15:07 RBC 5.63 X10^6/uL (4.7-6.0) 07/28/25 15:07 Hgb 13.6 g/dL (13.5-18.0) 07/28/25 15:07 Hct 40.8 % (42.0-54.0) L 07/28/25 15:07 MCV 72.4 fL (80.0-100.0) L 07/28/25 15:07 MCH 24.1 pg (27.0-34.0) L 07/28/25 15:07 MCHC 33.3 g/dL (33.0-35.0) 07/28/25 15:07 RDW 15.8 % (11.6-16.5) 07/28/25 15:07 Plt Count 133 X10^3/uL (150.0-450.0) L 07/28/25 15:07 Plt Count Comment Decreased (ADEQUATE) 07/28/25 15:07 MPV 9.5 fL (7.4-11.0) 07/28/25 15:07 Neut % (Auto) 49.7 % (42.0-75.0) 07/28/25 15:07 Lymph % (Auto) 34.3 % (21.0-51.0) 07/28/25 15:07 [place] % (Auto) 14.1 % (0.0-13.0) H 07/28/25 15:07 Eos % (Auto) 1.2 % (0.9-2.9) 07/28/25 15:07 Baso % (Auto) 0.7 % (0.2-1.0) 07/28/25 15:07 Neut # (Auto) 2.4 x10^3/uL (2.2-4.8) 07/28/25 15:07 Lymph # (Auto) 1.7 X10^3/uL (1.3-2.9) 07/28/25 15:07 [place] # (Auto) 0.7 x10^3/uL (0.3-0.8) 07/28/25 15:07 Eos # (Auto) 0.1 x10^3/uL (0.0-0.2) 07/28/25 15:07 Baso # (Auto) 0.0 X10^3/uL (0.0-0.1) 07/28/25 15:07 Absolute Nucleated RBC 0.1 /100WBC 07/28/25 15:07 Plt Morphology Comment Normal (NORMAL) 07/28/25 15:07 RBC Morphology Abnormal (NORMAL) 07/28/25 15:07 Hypochromasia Slight A 07/28/25 15:07 Microcytosis Slight A 07/28/25 15:07 Stomatocytes Present 07/28/25 15:07 PT 12.9 SECONDS (11.8-14.3) 07/28/25 15:07 INR Target Range - 07/28/25 15:07 INR 0.96 (0.8-1.3) 07/28/25 15:07 APTT 23.2 SECONDS (22.9-36.5) 07/28/25 15:07 PTT Comment - 07/28/25 15:07 Sodium 130 mmol/L (136-145) L 07/28/25 15:07 Corrected Sodium 134 mmol/L (136-145) L 07/28/25 15:07 Potassium 2.8 mmol/L (3.5-5.1) L* 07/28/25 15:07 Chloride 92 mmol/L (98-107) L 07/28/25 15:07 Carbon Dioxide 23.6 mmol/L (21-32) 07/28/25 15:07 BUN 17 mg/dL (7-18) 07/28/25 15:07 Creatinine 2.02 mg/dL (0.70-1.30) H 07/28/25 15:07 Est GFR (MDRD) Af Amer 45 (>60) L 07/28/25 15:07 Est GFR (MDRD) Non-Af 37 (>60) L 07/28/25 15:07 Glucose 254 mg/dL (65-99) H 07/28/25 15:07 Calcium 8.7 mg/dL (8.5-10.1) 07/28/25 15:07 Corrected Calcium TNP 07/28/25 15:07 Magnesium 2.0 mg/dL (2.0-2.9) 07/28/25 15:07 Total Bilirubin 1.10 mg/dL (0.2-1.0) H 07/28/25 15:07 AST 36 Units/L (15-37) 07/28/25 15:07 ALT 67 Units/L (12-78) 07/28/25 15:07 Alkaline Phosphatase 54 Units/L (46-116) 07/28/25 15:07 Creatine Kinase 70 Units/L (39-308) 07/28/25 15:07 Troponin I High Sens 17.9 ng/L (4.0-60.0) 07/28/25 15:07 Total Protein 6.8 g/dL (6.4-8.2) 07/28/25 15:07 Albumin 3.4 g/dL (3.4-5.0) 07/28/25 15:07 Globulin 3.4 g/dL (2.5-4.5) 07/28/25 15:07 Albumin/Globulin Ratio 1.0 Ratio (1.1-2.1) L 07/28/25 15:07 Acetone, Semi-Quant Moderate (NEGATIVE) H 07/28/25 15:07 Other Results Comments: [id number] 1975 Sex: M Location: ER Order Number(s): [id number] Procedure(s):HEAD (TRAUMA) CT Ordering Physician: Pedro Delcid [facility] [facility] [place]: 07/28/25 Service Time: 1422 EXAM: HEAD (TRAUMA) HISTORY: Syncope Episode; COMPARISON: None available. TECHNIQUE: Multiple axial images of the brain were obtained from the skull base to the vertex without administration of IV contrast. Dose reduction techniques including Automated Exposure Control (AEC) and adjustment of mA and kV were utilized. FINDINGS: No acute intraparenchymal hemorrhage or mass can be identified. No extra-axial fluid collections are seen. No alteration in the attenuation of the brain parenchyma can be identified to suggest acute or subacute ischemic change. The ventricular system is symmetric and nondilated. The extracranial structures appear unremarkable. IMPRESSION: 1. No acute intracranial process can be identified. THIS IS AN ELECTRONICALLY VERIFIED FINAL REPORT 07/28/2025 3:01 PM - Electronically signed by Rick Medrano MD Name: MISTI HONG : 1975 Sex: M Location: ER Order Number(s): [id number] Procedure(s):CT ABDOMEN/PELVIS W/O CON Ordering Physician: Pedro Delcid [facility] [facility] [place]: 07/28/25 Service Time: 1422 EXAM: ABDOMEN/PELVIS W/O CON HISTORY: LOW ABD PAIN; COMPARISON: None TECHNIQUE: CT of the abdomen and pelvis obtained without IV contrast. Study limited due to lack of IV contrast. Dose reduction techniques including Automated Exposure Control (AEC) and adjustment of mA and kV were utilized. FINDINGS: The visualized portions of the lower thorax demonstrate no acute process. Coronary calcifications. No acute osseous abnormality. Multilevel degenerative changes in the visualized spine. The liver, gallbladder, spleen, pancreas, bilateral adrenal glands, and bilateral kidneys demonstrate no acute process given lack of IV contrast. Ill-defined subcentimeter hypoattenuating right hepatic lesion which is too small to characterize. Hepatic steatosis. No evidence of bowel obstruction. The appendix is unremarkable. The bladder is unremarkable. No free air or fluid. Nonaneurysmal aorta. IMPRESSION: No acute findings in the abdomen or pelvis. THIS IS AN ELECTRONICALLY VERIFIED FINAL REPORT 07/28/2025 3:05 PM - Electronically signed by Jan Dickinson MD XRAY X-ray Results: [id number] : 1975 Sex: M Location: ER Order Number(s): [id number] Procedure(s):CHEST, 1 VIEW X-RAY Ordering Physician: Pedro Delcid [facility] [facility] [place]: 07/28/25 Service Time: 142 EXAM: CHEST, 1 VIEW HISTORY: SYNCOPE; COMPARISON: September 30, 2023 TECHNIQUE: AP upright view of the chest FINDINGS: Heart size is normal for technique, and mediastinal contours are normal. Lungs are hypoinflated but otherwise clear as are the pleural spaces. No free air or pneumothorax. No acute bony abnormality. Multilevel bridging osteophytes of the spine are typical of diffuse idiopathic skeletal hyperostosis. IMPRESSION: No acute radiographic abnormalities of the chest THIS IS AN ELECTRONICALLY VERIFIED FINAL REPORT 07/28/2025 2:56 PM - Electronically signed by Marc Sinha MD EKG Rate: 67 [place]: Normal Rhythm: NSR (Prolonged QT interval) Hypertrophy: None ST: Normal Opioid Opioid Risk Tool Age (Anton box if 16-45): No History of Preadolescent Sexual Abuse: No Total: 0 Total Score Risk Category: Low Risk Copyright: [facility] predicting aberrant behaviors Discharge Plan Diagnosis Discharge Problem: DKA (diabetic ketoacidosis), Hypokalemia Discharge Plan Patient Disposition: ADMITTED INPATIENT Condition: Stable Prescriptions: No Action rosuvastatin 20 mg tablet 20 mg PO QDAY Qty: 90 3RF furosemide [Lasix] 40 mg tablet 40 mg PO QDAY Qty: 90 3RF potassium chloride 10 mEq capsule, extended release 10 meq PO QDAY Qty: 90 3RF Entresto 24-26 mg tablet 1 tab PO BID Qty: 60 3RF aspirin 81 mg tablet,delayed release (DR/EC) 81 mg PO QDAY metformin 500 mg tablet 500 mg PO BID Qty: 30 0RF Health Concerns: Post Hospitalization: new medications and changes needed to prevent readmission or further decline. Pt educated and given instructions on all concerns. Plan of Treatment: Continue with present treatment and follow up plan. Pt is to keep follow up appointment as instructed and take medications as ordered. Orders to Discharge Patient Discharge Orders: Transfer (Routine); Ordered 07/28/25 Ordered By: Pedro Delcid Follow ups/Referrals Follow ups/Referrals: MDMisc [Primary Care Provider] - 3 days Instructions Stand Alone Forms: Find Help Web Site, Post Hospital Follow Up Care Print Language: SETSWANA
--- NOTE | 2025-07-28 15:09 | CT ---
EXAM: ABDOMEN/PELVIS W/O CON HISTORY: LOW ABD PAIN; COMPARISON: None TECHNIQUE: CT of the abdomen and pelvis obtained without IV contrast. Study limited due to lack of IV contrast. Dose reduction techniques including Automated Exposure Control (AEC) and adjustment of mA and kV were utilized. FINDINGS: The visualized portions of the lower thorax demonstrate no acute process. Coronary calcifications. No acute osseous abnormality. Multilevel degenerative changes in the visualized spine. The liver, gallbladder, spleen, pancreas, bilateral adrenal glands, and bilateral kidneys demonstrate no acute process given lack of IV contrast. Ill-defined subcentimeter hypoattenuating right hepatic lesion which is too small to characterize. Hepatic steatosis. No evidence of bowel obstruction. The appendix is unremarkable. The bladder is unremarkable. No free air or fluid. Nonaneurysmal aorta. IMPRESSION: No acute findings in the abdomen or pelvis. THIS IS AN ELECTRONICALLY VERIFIED FINAL REPORT 07/28/2025 3:05 PM - Electronically signed by Jan Dickinson MD
[2025-07-28 15:15] LABS: MEAN PLATELET VOLUME 9.5 fL (7.4-11.0); RED CELL DISTRIBUTION WIDTH 15.8 % (11.6-16.5)
[2025-07-28 15:32] LABS: COR NA(FOR HYPERGLY) 134 mmol/L (136-145); CREATININE 2.02 mg/dL (0.70-1.30); eGFR NON BLACK RACES 37 (>60)
[2025-07-28 15:35] LABS: INR 0.96 (0.8-1.3)
[2025-07-28 15:43] LABS: PLATELET MORPHOLOGY COMMENT NORMAL (NORMAL)
[2025-07-28] MEDS: K-DUR TAB 20 MEQ PO ONE (15:43)
[2025-07-28] MEDS: NS 1,000 ML IV 1,000 ML IV ONE (15:48)
[2025-07-28] MEDS: K-RIDER 10 MEQ/100 ML WATER 10 MEQ/100 ML BAG IV ONE ×2 (15:49→17:52)
[2025-07-28] MEDS: POTASSIUM CHLORIDE LIQ PO ONE (16:23)
[2025-07-28 17:11] LABS: BLOOD/HEMOGLOBIN,URINE NEGATIVE (NEGATIVE); LEUKOCYTE ESTERASE ,URINE NEGATIVE (NEGATIVE); NITRITES,URINE NEGATIVE (NEGATIVE)
[2025-07-28 17:13] LABS: APPEARANCE,URINE CLEAR (CLEAR)
[2025-07-28] MEDS ORDERED: ULTRAM PO PRN (17:24)
[2025-07-28] MEDS ORDERED: MORPHINE SULFATE INJ 2 MG INJ IVP PRN (17:24)
[2025-07-28] MEDS ORDERED: TYLENOL 325 MG TAB PO PRN (17:24)
[2025-07-28] MEDS ORDERED: NORCO 5/325 MG TAB PO PRN (17:24)
[2025-07-28] MEDS: NS 1,000 ML IV 1,000 ML IV SCH (17:32)
[2025-07-28] MEDS: ZOFRAN INJ 4 MG VIAL ONE (17:52)
[2025-07-28] MEDS: POTASSIUM CHLORIDE LIQ ONE (17:53)
[2025-07-28] MEDS: NS 1,000 ML IV 1,000 ML ONE (17:53)
[2025-07-28 18:28] VITALS: BMI 39.6
[2025-07-28 18:46] LABS: COR NA(FOR HYPERGLY) 135 mmol/L (136-145); CREATININE 2.02 mg/dL (0.70-1.30); eGFR NON BLACK RACES 37 (>60)
[2025-07-28] MEDS: SNACK - Diabetic Appropriate PO SCH (20:00)
[2025-07-28] MEDS: NovoLIN R (or HumuLIN R) SUBCUT PRN (22:14)
[2025-07-28] MEDS: COLACE CAP 100 MG PO SCH (22:14)
[2025-07-28] MEDS: KLOR-CON 10 MEQ TAB PO ONE (22:14)
[2025-07-28] MEDS: ENTRESTO 24/26 MG TABLET PO SCH (22:14)
[2025-07-28] MEDS: CRESTOR TAB 10 MG PO SCH (22:14)
[2025-07-29] MEDS: CONSULT PHARMACY - POTASSIUM & MAGNESIUM XX SCH (01:45)
[2025-07-29 05:09] LABS: MEAN PLATELET VOLUME 10.7 fL (7.4-11.0); RED CELL DISTRIBUTION WIDTH 15.6 % (11.6-16.5)
[2025-07-29 05:18] LABS: COR CA(FOR HYPOALB) 9.1 mg/dL (8.5-10.1); COR NA(FOR HYPERGLY) 138.0 mmol/L (136-145); CREATININE 1.75 mg/dL (0.70-1.30); eGFR NON BLACK RACES 44.0 (>60)
[2025-07-29 05:29] LABS: PLATELET MORPHOLOGY COMMENT NORMAL (NORMAL)
[2025-07-29] MEDS ORDERED: CONSULT PHARMACY - POTASSIUM & MAGNESIUM XX SCH (08:00)
[2025-07-29] MEDS: NS + KCL 40 MEQ/L 1,000 ML with MAGNESIUM SULFATE 50% INJ VIAL 1 G IV SCH (08:30)
[2025-07-29] MEDS: LASIX PO SCH (08:31)
[2025-07-29] MEDS: ASPIRIN EC 81 MG PO SCH (08:31)
[2025-07-29] MEDS ORDERED: GLUCOPHAGE ONE ×2 (09:25→19:26)
[2025-07-29] MEDS: GLUCOPHAGE PO SCH (10:06)
[2025-07-29] MEDS: K-DUR TAB 20 MEQ PO SCH (10:06)
--- NOTE | 2025-07-29 10:49 | DR.H&P ---
H&P History & Physical for Day of: H&P Date: 07/29/25 Chief Complaint Chief Complaint: dizziness, near syncope History of Present Illness History of Present Illness: Patient presents with dizziness, nausea, vomiting and abdominal pain. He does have a history of type 2 diabetes, hypertension, hyperlipidemia and CHF. He was recently started on insulin. ER workup included labs which showed hypokalemia, elevated BUN/creatinine and elevated glucose. CT brain was negative, CTAP was negative for any acute changes. Chest x-ray did not show any infection. He was started on IV fluids and potassium replacement. He is feeling better this morning. He denies any dizziness or GI symptoms. He has been tolerating his diet. Labs/imaging reviewed: - WBC 5.8 hemoglobin 12.5 platelet 138 potassium 2.7 magnesium 1.9 creatinine 1.75 glucose 261 Plan: Admit to [facility]. Change IV fluids with KCl and magnesium. Add p.o. potassium replacement. Monitor electrolytes and replace as needed. Monitor glucose. Resume metformin. Resume home medications as appropriate. Ambulate as tolerated. Monitor a.m. labs and imaging. Time spent for clinical assessment, reviewing labs/imaging, physical exam, decision making and documentation greater than 45 mins. Past Medical History Past Medical History: CHF, Diabetes and Hypertension Family History Family Medical History: Diabetes Mellitus, [place], Coronary Artery Disease and Hypertension Social History Does patient currently use any type of tobacco product: No Have you used tobacco products in the last 12 months: No Type of Tobacco Use: None Does any household member use tobacco: No Alcohol Use: None Drug Use: None Medications Home Medications: Home Medications Medication Instructions Recorded Confirmed Type aspirin 81 mg tablet,delayed 81 mg PO QDAY 12/23/23 History release Allergies Allergies Allergy/AdvReac Type Severity Reaction Status Date / Time No Known Drug Allergies Allergy Verified 07/28/25 15:04 Labs 07/29/25 04:23 07/29/25 04:23 Labs: Laboratory WBC 5.8 X10^3/uL (3.6-10.0) 07/29/25 04:23 RBC 5.23 X10^6/uL (4.7-6.0) 07/29/25 04:23 Hgb 12.5 g/dL (13.5-18.0) L 07/29/25 04:23 Hct 37.9 % (42.0-54.0) L 07/29/25 04:23 MCV 72.6 fL (80.0-100.0) L 07/29/25 04:23 MCH 23.9 pg (27.0-34.0) L 07/29/25 04:23 MCHC 33.0 g/dL (33.0-35.0) 07/29/25 04:23 RDW 15.6 % (11.6-16.5) 07/29/25 04:23 Plt Count 138 X10^3/uL (150.0-450.0) L 07/29/25 04:23 Plt Count Comment Decreased (ADEQUATE) 07/29/25 04:23 MPV 10.7 fL (7.4-11.0) 07/29/25 04:23 Neut % (Auto) 42.7 % (42.0-75.0) 07/29/25 04:23 Lymph % (Auto) 41.5 % (21.0-51.0) 07/29/25 04:23 [place] % (Auto) 14.1 % (0.0-13.0) H 07/29/25 04:23 Eos % (Auto) 1.0 % (0.9-2.9) 07/29/25 04:23 Baso % (Auto) 0.7 % (0.2-1.0) 07/29/25 04:23 Neut # (Auto) 2.5 x10^3/uL (2.2-4.8) 07/29/25 04:23 Lymph # (Auto) 2.4 X10^3/uL (1.3-2.9) 07/29/25 04:23 [place] # (Auto) 0.8 x10^3/uL (0.3-0.8) 07/29/25 04:23 Eos # (Auto) 0.1 x10^3/uL (0.0-0.2) 07/29/25 04:23 Baso # (Auto) 0.0 X10^3/uL (0.0-0.1) 07/29/25 04:23 Absolute Nucleated RBC 0.1 /100WBC 07/29/25 04:23 Plt Morphology Comment Normal (NORMAL) 07/29/25 04:23 RBC Morphology Abnormal (NORMAL) 07/29/25 04:23 Hypochromasia 1+ A 07/29/25 04:23 Microcytosis Slight A 07/29/25 04:23 Stomatocytes Present 07/28/25 15:07 PT 12.9 SECONDS (11.8-14.3) 07/28/25 15:07 INR Target Range - 07/28/25 15:07 INR 0.96 (0.8-1.3) 07/28/25 15:07 APTT 23.2 SECONDS (22.9-36.5) 07/28/25 15:07 PTT Comment - 07/28/25 15:07 Sodium 134 mmol/L (136-145) L 07/29/25 04:23 Corrected Sodium 138 mmol/L (136-145) 07/29/25 04:23 Potassium 2.7 mmol/L (3.5-5.1) L* 07/29/25 04:23 Chloride 92 mmol/L (98-107) L 07/29/25 04:23 Carbon Dioxide 25.2 mmol/L (21-32) 07/29/25 04:23 BUN 15 mg/dL (7-18) 07/29/25 04:23 Creatinine 1.75 mg/dL (0.70-1.30) H 07/29/25 04:23 Est GFR (MDRD) Af Amer 53 (>60) L 07/29/25 04:23 Est GFR (MDRD) Non-Af 44 (>60) L 07/29/25 04:23 Glucose 269 mg/dL (65-99) H 07/29/25 04:23 POC Glucose (mg/dL) 261 mg/dL (65-99) H 07/29/25 05:04 Calcium 8.4 mg/dL (8.5-10.1) L 07/29/25 04:23 Corrected Calcium 9.1 mg/dL (8.5-10.1) 07/29/25 04:23 Magnesium 1.9 mg/dL (2.0-2.9) L 07/29/25 04:23 Total Bilirubin 0.90 mg/dL (0.2-1.0) 07/29/25 04:23 AST 26 Units/L (15-37) 07/29/25 04:23 ALT 55 Units/L (12-78) 07/29/25 04:23 Alkaline Phosphatase 46 Units/L (46-116) 07/29/25 04:23 Creatine Kinase 70 Units/L (39-308) 07/28/25 15:07 Troponin I High Sens 18.7 ng/L (4.0-60.0) 07/28/25 17:14 Total Protein 6.1 g/dL (6.4-8.2) L 07/29/25 04:23 Albumin 3.1 g/dL (3.4-5.0) L 07/29/25 04:23 Globulin 3.0 g/dL (2.5-4.5) 07/29/25 04:23 Albumin/Globulin Ratio 1.0 Ratio (1.1-2.1) L 07/29/25 04:23 Specimen Type Clean catch urine 07/28/25 17:00 Urine Color Yellow (YELLOW) 07/28/25 17:00 Urine Appearance Clear (CLEAR) 07/28/25 17:00 Urine pH 6.0 (5.0 - 8.0) 07/28/25 17:00 Ur Specific [place] 1.020 (1.000-1.030) 07/28/25 17:00 Urine Protein Negative (NEGATIVE) 07/28/25 17:00 Urine Glucose (UA) 4+ (NEGATIVE) 07/28/25 17:00 Urine Ketones 3+ (NEGATIVE) 07/28/25 17:00 Urine Blood Negative (NEGATIVE) 07/28/25 17:00 Urine Nitrite Negative (NEGATIVE) 07/28/25 17:00 Urine Bilirubin Negative (NEGATIVE) 07/28/25 17:00 Urine Urobilinogen Normal (NORMAL) 07/28/25 17:00 Ur Leukocyte Esterase Negative (NEGATIVE) 07/28/25 17:00 Acetone, Semi-Quant Moderate (NEGATIVE) H 07/28/25 15:07 Review of Systems Constitutional: Weakness Eyes: No Symptoms Reported ENT: No Symptoms Reported Respiratory: No Symptoms Reported Cardiovascular: No Symptoms Reported Gastrointestinal: Nausea, Vomiting and Abdominal Pain Genitourinary: No Symptoms Reported Musculoskeletal: No Symptoms Reported Skin: No Symptoms Reported Neurological: No Symptoms Reported Physical Exam Vital Signs: Vital Signs Temperature 97.8 F Temperature 97.6 F Pulse Rate [Radial] 72 Pulse Rate [Radial] 69 Respiratory Rate 20 Respiratory Rate 19 Blood Pressure [Right Arm] 114/70 Blood Pressure [Right Arm] 105/59 O2 Sat by Pulse Oximetry 99 O2 Sat by Pulse Oximetry 97 Oriented: Normal Respiratory: Clear Throughout Cardiovascular: Normal Auscultation: Bowel Sounds: Normal Palpation: Normal Tenderness: Normal Skin: Normal Musculoskeletal: Normal Psychiatric: Normal Mood Description: Calm Affect: Normal Speech Pattern: Clear and Appropriate Assessment/Plan (1) Hypokalemia: Status: Acute (2) Hyperglycemia: Status: Acute (3) Hypomagnesemia: Status: Acute (4) Diabetes: Qualifiers: Diabetes mellitus complication status: with hyperglycemia Diabetes mellitus mcc insulin use: with mcc use Diabetes mellitus type: type 2 Qualified Code(s): E11.65 - Type 2 diabetes mellitus with hyperglycemia; Z79.4 - retirement (current) use of insulin Status: Chronic (5) CAD (coronary artery disease): Qualifiers: Associated angina: without angina Coronary Disease-Associated Artery/Lesion type: unspecified vessel or lesion type [place] vs. transplanted heart: [place] heart Qualified Code(s): I25.10 - Atherosclerotic heart disease of [place] coronary artery without angina pectoris Status: Chronic (6) Hyperlipidemia: Qualifiers: Hyperlipidemia type: mixed hyperlipidemia Qualified Code(s): E78.2 - Mixed hyperlipidemia Status: Chronic Review H&P Reviewed: Yes Patient was examined?: Yes
[2025-07-30 04:32] VITALS: O2SAT 100
[2025-07-30 05:21] LABS: MEAN PLATELET VOLUME 10.7 fL (7.4-11.0); RED CELL DISTRIBUTION WIDTH 15.9 % (11.6-16.5)
[2025-07-30 05:40] LABS: COR CA(FOR HYPOALB) 9.1 mg/dL (8.5-10.1); COR NA(FOR HYPERGLY) 140 mmol/L (136-145); CREATININE 1.52 mg/dL (0.70-1.30); eGFR NON BLACK RACES 52 (>60)
[2025-07-30] MEDS ORDERED: CONSULT PHARMACY - POTASSIUM & MAGNESIUM XX SCH (07:00)
[2025-07-30] MEDS ORDERED: GLUCOPHAGE ONE (08:09)
[2025-07-30] MEDS ORDERED: K-DUR TAB 20 MEQ PO SCH (10:00)
[2025-07-30] MEDS: LANTUS SC ONE (11:23)
[2025-07-30 12:46] VITALS: BP 120/70; PULSE 77; RESP 18; TEMP 98
[2025-07-30] MEDS ORDERED: SNACK - Diabetic Appropriate PO SCH (20:00)
--- NOTE | 2025-08-01 12:57 | W.DIS.FURT ---
Summary of Discharge Discharge Summary of Date Date of Exam: 07/30/25 Admission Date Date of Admission: 07/28/25 Admission Diagnosis Patient Problems (Updated 07/29/25 @ 10:48 by Laverne Mejía MD) Hypokalemia (Acute) E87.6 DKA (diabetic ketoacidosis) (Acute) E11.10 Hospital Course: Patient presents with dizziness, nausea, vomiting and abdominal pain. He does have a history of type 2 diabetes, hypertension, hyperlipidemia and CHF. He was recently started on insulin. ER workup included labs which showed hypokalemia, elevated BUN/creatinine and elevated glucose. CT brain was negative, CTAP was negative for any acute changes. Chest x-ray did not show any infection. He was started on IV fluids and potassium replacement. He is feeling better this morning. He denies any dizziness or GI symptoms. He has been tolerating his diet. His labs are monitored daily and electrolytes replaced as needed. His potassium level improved with replacement. His home medications were restarted and he was started back on insulin. Patient was educated on diabetic diet and monitoring glucose at home. He was stable for discharge home. He will follow- up with PCP as scheduled. Time spent for clinical assessment, reviewing labs/imaging, physical exam, decision making and documentation greater than 45 mins. Vital Signs: Vital Signs (72 hours) 07/28/25 14:28 07/28/25 14:39 07/28/25 14:54 Temperature 98.1 F Pulse Rate 73 68 70 Pulse Rate [Radial] Respiratory Rate 20 20 Blood Pressure 104/59 Blood Pressure [Right Arm] O2 Sat by Pulse Oximetry 97 98 95 Oxygen Delivery Method Room Air 07/28/25 15:00 07/28/25 15:15 07/28/25 15:30 Temperature Pulse Rate 68 67 69 Pulse Rate [Radial] Respiratory Rate 17 15 15 Blood Pressure Blood Pressure [Right Arm] O2 Sat by Pulse Oximetry 96 95 98 Oxygen Delivery Method 07/28/25 15:33 07/28/25 15:33 07/28/25 15:40 Temperature Pulse Rate 70 71 Pulse Rate [Radial] Respiratory Rate 13 Blood Pressure 101/60 Blood Pressure [Right Arm] O2 Sat by Pulse Oximetry 98 99 Oxygen Delivery Method 07/28/25 15:40 07/28/25 15:45 07/28/25 15:50 Temperature Pulse Rate 71 Pulse Rate [Radial] Respiratory Rate 14 Blood Pressure 102/62 87/62 Blood Pressure [Right Arm] O2 Sat by Pulse Oximetry 100 Oxygen Delivery Method 07/28/25 15:50 07/28/25 16:00 07/28/25 16:00 Temperature Pulse Rate 72 70 Pulse Rate [Radial] Respiratory Rate 12 15 Blood Pressure 97/60 Blood Pressure [Right Arm] O2 Sat by Pulse Oximetry 99 100 Oxygen Delivery Method 07/28/25 16:10 07/28/25 16:10 07/28/25 16:15 Temperature Pulse Rate 68 69 Pulse Rate [Radial] Respiratory Rate 18 15 Blood Pressure 93/56 Blood Pressure [Right Arm] O2 Sat by Pulse Oximetry 100 100 Oxygen Delivery Method 07/28/25 16:20 07/28/25 16:20 07/28/25 16:30 Temperature Pulse Rate 71 Pulse Rate [Radial] Respiratory Rate 20 Blood Pressure 111/71 111/73 Blood Pressure [Right Arm] O2 Sat by Pulse Oximetry 100 Oxygen Delivery Method 07/28/25 16:30 07/28/25 16:40 07/28/25 16:40 Temperature Pulse Rate 70 69 Pulse Rate [Radial] Respiratory Rate 23 17 Blood Pressure 120/76 Blood Pressure [Right Arm] O2 Sat by Pulse Oximetry 100 100 Oxygen Delivery Method 07/28/25 16:45 07/28/25 16:49 07/28/25 16:50 Temperature Pulse Rate 70 Pulse Rate [Radial] Respiratory Rate 22 Blood Pressure 116/77 Blood Pressure [Right Arm] O2 Sat by Pulse Oximetry 96 Oxygen Delivery Method Room Air 07/28/25 16:50 07/28/25 17:30 07/28/25 19:00 Temperature 97.8 F Pulse Rate 70 Pulse Rate [Radial] 67 Respiratory Rate 15 19 Blood Pressure Blood Pressure [Right Arm] 122/70 O2 Sat by Pulse Oximetry 100 100 Oxygen Delivery Method Room Air Room Air 07/28/25 20:00 07/29/25 00:00 07/29/25 04:00 Temperature 98.3 F 99.2 F 97.6 F Pulse Rate Pulse Rate [Radial] 98 H 76 69 Respiratory Rate 19 19 19 Blood Pressure Blood Pressure [Right Arm] 109/56 104/53 105/59 O2 Sat by Pulse Oximetry 98 99 97 Oxygen Delivery Method Room Air Room Air Room Air 07/29/25 07:00 07/29/25 07:59 07/29/25 11:44 Temperature 97.8 F 98.2 F Pulse Rate Pulse Rate [Radial] 72 73 Respiratory Rate 20 16 Blood Pressure Blood Pressure [Right Arm] 114/70 89/55 O2 Sat by Pulse Oximetry 99 99 Oxygen Delivery Method Room Air Room Air Room Air 07/29/25 16:00 07/29/25 19:00 07/29/25 20:00 Temperature 97.9 F 97.8 F Pulse Rate Pulse Rate [Radial] 73 71 Respiratory Rate 17 18 Blood Pressure Blood Pressure [Right Arm] 107/63 113/57 O2 Sat by Pulse Oximetry 98 96 Oxygen Delivery Method Room Air Room Air Room Air 07/30/25 00:00 07/30/25 04:00 07/30/25 07:00 Temperature 98.3 F 98.0 F Pulse Rate Pulse Rate [Radial] 77 77 Respiratory Rate 20 21 Blood Pressure Blood Pressure [Right Arm] 105/59 112/59 O2 Sat by Pulse Oximetry 99 100 Oxygen Delivery Method Room Air Room Air Room Air 07/30/25 08:00 Temperature 98.4 F Pulse Rate Pulse Rate [Radial] 83 Respiratory Rate 16 Blood Pressure Blood Pressure [Right Arm] 126/76 O2 Sat by Pulse Oximetry 100 Oxygen Delivery Method Room Air Labs: Laboratory Last Values WBC 5.2 X10^3/uL (3.6-10.0) 07/30/25 04:56 RBC 5.18 X10^6/uL (4.7-6.0) 07/30/25 04:56 Hgb 12.3 g/dL (13.5-18.0) L 07/30/25 04:56 Hct 37.9 % (42.0-54.0) L 07/30/25 04:56 MCV 73.1 fL (80.0-100.0) L 07/30/25 04:56 MCH 23.6 pg (27.0-34.0) L 07/30/25 04:56 MCHC 32.4 g/dL (33.0-35.0) L 07/30/25 04:56 RDW 15.9 % (11.6-16.5) 07/30/25 04:56 Plt Count 123 X10^3/uL (150.0-450.0) L 07/30/25 04:56 Plt Count Comment Decreased (ADEQUATE) 07/29/25 04:23 MPV 10.7 fL (7.4-11.0) 07/30/25 04:56 Neut % (Auto) 41.2 % (42.0-75.0) L 07/30/25 04:56 Lymph % (Auto) 42.5 % (21.0-51.0) 07/30/25 04:56 [place] % (Auto) 12.9 % (0.0-13.0) 07/30/25 04:56 Eos % (Auto) 1.2 % (0.9-2.9) 07/30/25 04:56 Baso % (Auto) 2.2 % (0.2-1.0) H 07/30/25 04:56 Neut # (Auto) 2.1 x10^3/uL (2.2-4.8) L 07/30/25 04:56 Lymph # (Auto) 2.2 X10^3/uL (1.3-2.9) 07/30/25 04:56 [place] # (Auto) 0.7 x10^3/uL (0.3-0.8) 07/30/25 04:56 Eos # (Auto) 0.1 x10^3/uL (0.0-0.2) 07/30/25 04:56 Baso # (Auto) 0.1 X10^3/uL (0.0-0.1) 07/30/25 04:56 Absolute Nucleated RBC 0.0 /100WBC 07/30/25 04:56 Plt Morphology Comment Normal (NORMAL) 07/29/25 04:23 RBC Morphology Abnormal (NORMAL) 07/29/25 04:23 Hypochromasia 1+ A 07/29/25 04:23 Microcytosis Slight A 07/29/25 04:23 Stomatocytes Present 07/28/25 15:07 PT 12.9 SECONDS (11.8-14.3) 07/28/25 15:07 INR Target Range - 07/28/25 15:07 INR 0.96 (0.8-1.3) 07/28/25 15:07 APTT 23.2 SECONDS (22.9-36.5) 07/28/25 15:07 PTT Comment - 07/28/25 15:07 Sodium 137 mmol/L (136-145) 07/30/25 04:56 Corrected Sodium 140 mmol/L (136-145) 07/30/25 04:56 Potassium 3.7 mmol/L (3.5-5.1) 07/30/25 04:56 Chloride 98 mmol/L (98-107) 07/30/25 04:56 Carbon Dioxide 25.2 mmol/L (21-32) 07/30/25 04:56 BUN 10 mg/dL (7-18) 07/30/25 04:56 Creatinine 1.52 mg/dL (0.70-1.30) H 07/30/25 04:56 Est GFR (MDRD) Af Amer > 60 (>60) 07/30/25 04:56 Est GFR (MDRD) Non-Af 52 (>60) L 07/30/25 04:56 Glucose 231 mg/dL (65-99) H 07/30/25 04:56 POC Glucose (mg/dL) 234 mg/dL (65-99) H 07/30/25 05:36 Hemoglobin A1c > 14.0 % 07/30/25 04:56 Calcium 8.2 mg/dL (8.5-10.1) L 07/30/25 04:56 Corrected Calcium 9.1 mg/dL (8.5-10.1) 07/30/25 04:56 Magnesium 2.1 mg/dL (2.0-2.9) 07/30/25 04:56 Total Bilirubin 0.60 mg/dL (0.2-1.0) 07/30/25 04:56 AST 22 Units/L (15-37) 07/30/25 04:56 ALT 48 Units/L (12-78) 07/30/25 04:56 Alkaline Phosphatase 51 Units/L (46-116) 07/30/25 04:56 Creatine Kinase 70 Units/L (39-308) 07/28/25 15:07 Troponin I High Sens 18.7 ng/L (4.0-60.0) 07/28/25 17:14 Total Protein 5.8 g/dL (6.4-8.2) L 07/30/25 04:56 Albumin 2.9 g/dL (3.4-5.0) L 07/30/25 04:56 Globulin 2.9 g/dL (2.5-4.5) 07/30/25 04:56 Albumin/Globulin Ratio 1.0 Ratio (1.1-2.1) L 07/30/25 04:56 Specimen Type Clean catch urine 07/28/25 17:00 Urine Color Yellow (YELLOW) 07/28/25 17:00 Urine Appearance Clear (CLEAR) 07/28/25 17:00 Urine pH 6.0 (5.0 - 8.0) 07/28/25 17:00 Ur Specific [place] 1.020 (1.000-1.030) 07/28/25 17:00 Urine Protein Negative (NEGATIVE) 07/28/25 17:00 Urine Glucose (UA) 4+ (NEGATIVE) 07/28/25 17:00 Urine Ketones 3+ (NEGATIVE) 07/28/25 17:00 Urine Blood Negative (NEGATIVE) 07/28/25 17:00 Urine Nitrite Negative (NEGATIVE) 07/28/25 17:00 Urine Bilirubin Negative (NEGATIVE) 07/28/25 17:00 Urine Urobilinogen Normal (NORMAL) 07/28/25 17:00 Ur Leukocyte Esterase Negative (NEGATIVE) 07/28/25 17:00 Acetone, Semi-Quant Moderate (NEGATIVE) H 07/28/25 15:07 Reason For Visit: DKA, HYPOKALEMIA Discharge Diagnosis All Active Problems (Updated 07/29/25 @ 10:48 by Laverne Mejía MD) Hypomagnesemia (Acute) Hypokalemia (Acute) DKA (diabetic ketoacidosis) (Acute) Hyperglycemia (Acute) Diabetes (Chronic) Lower respiratory infection (e.g., bronchitis, pneumonia, pneumonitis, pulmonitis) (Acute) Diabetes mellitus type 2, noninsulin dependent (Acute) Morbid obesity with BMI of 45.0-49.9, adult (Acute) Hyperlipidemia (Chronic) CAD (coronary artery disease) (Chronic) Abdominal pain (Acute) Cardiomyopathy (Acute) CHF (congestive heart failure) (Acute) Stage 2 type 1 prediabetes (Acute) On potassium wasting diuretic therapy (Acute) Furuncle (Acute) Abscess (Acute) Cellulitis (Acute) Pneumonia due to COVID-19 virus (Acute) Pneumonia (Acute) CHF (congestive heart failure) (Acute) Hyperglycemia (Acute) Edema (Acute) Plan of Treatment: Continue with present treatment and follow up plan. Pt is to keep follow up appointment as instructed and take medications as ordered. Discharge Medications Discharge Medications: No Known Drug Allergies Allergy (Verified 07/28/25 15:04) Discharge Disposition Discharge Disposition: To home Discharge Condition: stable Discharge Plan Discharge Plan Hospital Course: Patient presents with dizziness, nausea, vomiting and abdominal pain. He does have a history of type 2 diabetes, hypertension, hyperlipidemia and CHF. He was recently started on insulin. ER workup included labs which showed hypokalemia, elevated BUN/creatinine and elevated glucose. CT brain was negative, CTAP was negative for any acute changes. Chest x-ray did not show any infection. He was started on IV fluids and potassium replacement. He is feeling better this morning. He denies any dizziness or GI symptoms. He has been tolerating his diet. His labs are monitored daily and electrolytes replaced as needed. His potassium level improved with replacement. His home medications were restarted and he was started back on insulin. Patient was educated on diabetic diet and monitoring glucose at home. He was stable for discharge home. He will follow- up with PCP as scheduled. Time spent for clinical assessment, reviewing labs/imaging, physical exam, decision making and documentation greater than 45 mins. Patient Disposition: 01 HOME, SELF-CARE Condition: Stable Health Concerns: Post Hospitalization: new medications and changes needed to prevent readmission or further decline. Pt educated and given instructions on all concerns. Plan of Treatment: Continue with present treatment and follow up plan. Pt is to keep follow up appointment as instructed and take medications as ordered. Prescription drug monitoring program results: PDMP reviewed and no concerns identified Prescriptions: Continued rosuvastatin 20 mg tablet 20 mg PO QDAY Qty: 90 3RF furosemide [Lasix] 40 mg tablet 40 mg PO QDAY Qty: 90 3RF potassium chloride 10 mEq capsule, extended release 10 meq PO QDAY Qty: 90 3RF Entresto 24-26 mg tablet 1 tab PO BID Qty: 60 3RF aspirin 81 mg tablet,delayed release (DR/EC) 81 mg PO QDAY metformin 500 mg tablet 500 mg PO BID Qty: 30 0RF Orders to Discharge Patient Discharge Orders: Discharge (Routine); Ordered 07/30/25 Ordered By: Laverne Mejía Follow ups/Referrals Follow ups/Referrals: ,Misc [Primary Care Provider] - 3 days Instructions Instructions: Type 1 Diabetes Mellitus, Self-Care, Adult Stand Alone Forms: Excuse From Work or School, Find Help Web Site, Post Hospital Follow Up Care Print Language: ROMANIAN
== END 2025-07-30 13:45 | disposition home or self-care (01) ==
LOC: ER 14:20 → MED/SURG 14:20
PROVIDERS: ADMIT Family Medicine; ATTEND Family Medicine
DX: E87.6 Hypokalemia; E11.65 Type 2 diabetes mellitus with hyperglycemia; R10.84 Generalized abdominal pain; R11.2 Nausea with vomiting, unspecified; R94.4 Abnormal results of kidney function studies; Z79.4 Long term (current) use of insulin; I25.10 Atherosclerotic heart disease of native coronary artery without angina pectoris; R42 Dizziness and giddiness; R94.31 Abnormal electrocardiogram [ECG] [EKG]; Z86.79 Personal history of other diseases of the circulatory system; E78.2 Mixed hyperlipidemia; I10 Essential (primary) hypertension; R55 Syncope and collapse; E87.1 Hypo-osmolality and hyponatremia; E11.10 Type 2 diabetes mellitus with ketoacidosis without coma; R79.89 Other specified abnormal findings of blood chemistry; E80.6 Other disorders of bilirubin metabolism